=== PATIENT | male | born 1965 | race Caucasian/White ===

== ENCOUNTER 2018-06-17 08:57 | Outpatient (CLI) | payer BC ==
--- NOTE | 2018-06-17 10:34 | CT ---
CONTRAST ENHANCED CT IMAGES OF THE ABDOMEN: History: Pancreatic pseudocyst. Comparison: 05-22-18 FINDINGS: Contrast enhanced images of the abdomen obtained after the administration of IV and oral contrast. The lung bases are unremarkable. No evidence of free intraperitoneal air or fluid seen. The liver and spleen are unremarkable. The gallbladder is unremarkable. Adrenal glands and kidneys un remarkable. Previously noted intraperitoneal fluid collections have resolved. The pancreatic pseudocyst is again seen, 3D measurements measuring 9.2 x 6.4 x 6.3 cm. Overall size i s not significantly changed since the previous comparison CT. Colonic diverticula are present. IMPRESSION: 1. Stable pancreatic body pseudocyst. 2. Resolved intraperitoneal loculated fluid collections. POS: [facility]
[2018-06-17] MEDS ORDERED: ISOVUE-370 76%-LOCM 1 ML ONE (12:46)
== END 2018-06-17 08:58 | disposition home or self-care (01) ==
LOC: BICCT 08:57
PROVIDERS: ATTEND Internal Medicine Gastroenterology
DX: K85.21 Alcohol induced acute pancreatitis with uninfected necrosis (principal); K86.3 Pseudocyst of pancreas
CPT/HCPCS: 74160

== ENCOUNTER 2018-07-24 08:40 | Outpatient (CLI) | payer BC ==
--- NOTE | 2018-07-24 11:24 | CT ---
CT ABDOMEN WITH CONTRAST: History: Pseudocyst of pancreas. Comparison: CT 06-17-18 FINDINGS: Lung bases are clear. No pericardial effusion. The pancreatic pseudocyst is increased in size measuring 14 x 10 cm, previously 9.2 x 6.3 cm. There i s mass effect upon the stomach. A transgastric drainage is recommended. No evidence of acute inflammation. The liver and gallbladder and spleen are unremarkable. Iliac contour is not aneurysmal. No retroperitoneal adenopathy. IMPRESSION: Size increase of suspected pancreatic pseudocyst. Transgastric drainage recommended. POS: [facility]
[2018-07-24] MEDS ORDERED: ISOVUE-370 76%-LOCM 1 ML ONE (16:39)
== END 2018-07-24 08:41 | disposition home or self-care (01) ==
LOC: BICCT 08:40
PROVIDERS: ATTEND Surgery
DX: K86.3 Pseudocyst of pancreas (principal)
CPT/HCPCS: 74160